=== PATIENT | female | born 1995 | race African-American/Black ===

== ENCOUNTER 2016-12-10 21:43 | Emergency (ER) | payer MEDICAID ==
[~2016-12-10] VITALS: Ht 170.2 cm; Wt 99.0 kg
[~2016-12-10 21:43] MED LIST: ALBU1AER INH; ALBUAER3 INH; LATU40TA PO; LITH150C7 PO; PRED20 PO
[2016-12-10 21:45] VITALS: BP 160/101; PULSE 110; RESP 20; TEMP 99.1; O2SAT 100
[2016-12-10 22:47] VITALS: BP 142/79; PULSE 87; RESP 20; O2SAT 100
[2016-12-10] MEDS ORDERED: SODIUM CHLORIDE 0.9% FLUSH 10 ML FLUSH IVF PRN (23:30)
[2016-12-10 23:32] VITALS: BP_SYST 148; BP_SYST 149; BP_SYST 152; BP_DIAS 76; BP_DIAS 81; RESP 20; RESP 25
--- NOTE | 2016-12-10 23:56 | RADRPT ---
EXAM DATE/TIME: 12/10/2016 23:24 [facility] COMPARISON: No previous studies available for comparison. INDICATIONS : Syncopal episode. MEDICAL HISTORY : Asthma SURGICAL HISTORY : None. ENCOUNTER: Initial ACUITY: 1 day PAIN SCORE: 0/10 LOCATION: Bilateral chest FINDINGS: A single view of the chest demonstrates the lungs to be symmetrically aerated without evidence of mas s, infiltrate or effusion. The cardiomediastinal contours are unremarkable. Osseous structures are intact. CONCLUSION: No evidence of acute cardiopulmonary disease. Tyler Hilton MD on December 10, 2016 at 23:54 Board Certified Radiologist. This report was verified electronically.
[2016-12-11 00:36] LABS: AUTOMATED NEUTROPHIL # 3.5 TH/MM3 (1.8-7.7); BASOPHIL % 0.5 % (0.0-2.0); EOSINOPHIL % 0.4 % (0.0-4.0); HEMATOCRIT 42.7 % (35.0-46.0); HEMO FLAGS DIFF FINAL; LYMPH % 44.8 % (9.0-44.0); LYMPHOCYTE # 3.3 TH/MM3 (1.0-4.8); MEAN CELL VOLUME 88.7 FL (80.0-100.0); MEAN CORPUSCULAR HEMOGLOBIN 28.7 PG (27.0-34.0); MEAN CORPUSCULAR HGB CONC 32.4 % (32.0-36.0); MONO % 6.4 % (0.0-8.0); NEUT % 47.9 % (16.0-70.0); PLATELET COUNT 239 TH/MM3 (150-450); RED BLOOD COUNT 4.81 MIL/MM3 (4.00-5.30); RED CELL DISTRIBUTION WIDTH 13.8 % (11.6-17.2); WHITE BLOOD COUNT 7.4 TH/MM3 (4.0-11.0)
--- NOTE | 2016-12-11 00:49 | RADRPT ---
EXAM DATE/TIME: 12/11/2016 00:33 [facility] COMPARISON: No previous studies available for comparison. INDICATIONS : Cephalgia. RADIATION DOSE: 56.77 CTDIvol (mGy) MEDICAL HISTORY : None SURGICAL HISTORY : None. ENCOUNTER: Initial ACUITY: 1 day PAIN SCALE: 8/10 LOCATION: cranial TECHNIQUE: Multiple contiguous axial images were obtained of the head. Using automated exposure control and adj ustment of the mA and/or kV according to patient size, radiation dose was kept as low as reasonably a chievable to obtain optimal diagnostic quality images. FINDINGS: CEREBRUM: The ventricles are normal for age. No evidence of midline shift, mass lesion, hemorrhage or acute in farction. No extra-axial fluid collections are seen. POSTERIOR FOSSA: The cerebellum and brainstem are intact. The 4th ventricle is midline. The cerebellopontine angle i s unremarkable. EXTRACRANIAL: The visualized portion of the orbits is intact. SKULL: The calvaria is intact. No evidence of skull fracture. CONCLUSION: Negative noncontrast head CT. Tyler Hilton MD on December 11, 2016 at 0:47 Board Certified Radiologist. This report was verified electronically.
--- NOTE | 2016-12-11 00:49 | PD ---
HPI Chief Complaint: Syncope/Near-Syncope Time Seen by Provider: 23:20 Travel History International Travel<30 days: No Contact w/Intl Traveler<30days: No Traveled to known affect area: No History of Present Illness HPI 21-year-old female presents to the emergency department for evaluation of syncopal episode. Patient who provides her own history had just finished using her inhaler for her asthma and going to the bathroom to urinate when she was called by her mother to come downstairs and by the time she got out of the bottom stairs she had a fainting spell. Patient states that this event was witnessed and family member who is at the scene reported that she did not sustain any injury did not hit her head and did not have any seizure activity. Patient did not have any bladder or bowel incontinence and did not write her tongue. Patient is out for less than a minute or 2 reportedly. Patient denies headache or confusion. Patient had no preceding or post headache visual disturbance palpitations chest pain nausea vomiting diarrhea abdominal pain shortness of breath sweats or focal upper or lower extremity numbness tingling or weakness. Patient denies as she is on Depo-Provera shots and denies tobacco use. No personal history family history of clotting disorder. No pleuritic pain. Patient denies any injury. Patient's had no recent febrile illness or respiratory illness. Patient denies any dysuria frequency or urgency. Patient reports after deciding to be seen for her passing out spell started noticing some headache. Headache is not sudden onset thunderclap or worst ever. Patient has taken no medications prior to arrival to the emergency department. Patient here rates her pain 8/10 in intensity. PFSH Past Medical History Narrative Medical ADHD bipolar disorder schizophrenia asthma insomnia; no surgery; no tobacco use no alcohol use no substance use; nursing notes reviewed ADHD: Yes Blood Disorders: No Bipolar Disorder: Yes Cancer: No Diabetes: No Diminished Hearing: No Neurologic: Yes (SCHITZOPHRENIC, BIPOLAR, INSOMNIA) Psychiatric: No Immunizations Current: Yes Schizophrenia: Yes Seizures: No Thyroid Disease: No Ulcer: No Past Surgical History Other Surgery: No Social History Alcohol Use: No Tobacco Use: No Substance Use: No Allergies-Medications (Allergen,Severity, Reaction): Coded Allergies: Amoxicillin (Verified Allergy, Unknown, 12/10/16) Rosas (Verified Allergy, Unknown, 12/10/16) Reported Meds & Prescriptions Reported Meds & Active Scripts Active Proair Hfa 8.5 GM Inh (Albuterol Sulfate) 90 Mcg/Act Aer 2 Puff INH Q4-6H PRN 108 mcg/actuation Proair Hfa (Albuterol Sulfate) 8.5 Gm Aero 2 Puff INH Q4 * SHAKE WELL BEFORE USE * Deltasone (Prednisone) 20 Mg Tab 20 Mg PO BID Reported [place] Carbonate 150 Mg Cap 300 Mg PO BID Latuda (Lurasidone HCl) 40 Mg Tab 40 Mg PO DAILY Review of Systems Except as stated in HPI: all other systems reviewed are Neg General / Constitutional: No: Fever, Chills HENT: No: Congestion Cardiovascular: No: Chest Pain or Discomfort Respiratory: No: Shortness of Breath Gastrointestinal: No: Nausea, Vomiting, Abdominal Pain Genitourinary: No: Urgency, Frequency, Dysuria Musculoskeletal: No: Myalgias, Arthralgias Skin: No Rash Neurologic: No: Weakness, Dizziness Psychiatric: No: Anxiety Endocrine: No: Heat Intolerance Hematologic/Lymphatic: No: Easy Bruising Physical Exam Narrative GENERAL: Well-developed well-nourished female in no acute distress no respiratory distress SKIN: Warm and dry. HEAD: Atraumatic. Normocephalic. No scalp tenderness no soft tissue swelling EYES: Pupils equal and round. No scleral icterus. No injection or drainage. Extraocular muscles intact. ENT: No nasal bleeding or discharge. Mucous membranes pink and moist. Airway is patent. No tongue trauma. NECK: Trachea midline. No JVD. Nontender to direct palpation along the cervical spine no bony step-off. Supple no meningismus. CARDIOVASCULAR: Regular rate and rhythm. RESPIRATORY: No accessory muscle use. Clear to auscultation. Breath sounds equal bilaterally. GASTROINTESTINAL: Abdomen soft, non-tender, nondistended. Hepatic and splenic margins not palpable. MUSCULOSKELETAL: Extremities without clubbing, cyanosis, or edema. No obvious deformities. NEUROLOGICAL: Awake and alert. No obvious cranial nerve deficits. Motor grossly within normal limits. Five out of 5 muscle strength in the arms and legs. Normal speech. PSYCHIATRIC: Appropriate mood and affect; insight and judgment normal. Data Data Last Documented VS Vital Signs Date Time Temp Pulse Resp B/P Pulse Ox O2 Delivery O2 Flow Rate FiO2 12/10/16 23:32 82 20 149/81 106 25 152/81 89 20 148/76 12/10/16 22:47 100 Room Air 12/10/16 21:45 99.1 Orders Electrocardiogram (12/10/16 23:20) Basic Metabolic Panel (Bmp) (12/10/16 23:20) Ed Urine Pregnancytest Poc (12/10/16 23:20) Complete Blood Count With Diff (12/10/16 23:20) Magnesium (Mg) (12/10/16 23:20) Troponin I (12/10/16 23:20) Urinalysis - C+S If Indicated (12/10/16 23:20) Chest, Single Ap (12/10/16 23:20) Ct Brain W/O Iv Contrast(Rout) (12/10/16 23:20) Blood Glucose (12/10/16 23:20) Ecg Monitoring (12/10/16 23:20) Iv Access Insert/Monitor (12/10/16 23:20) Oximetry (12/10/16 23:20) Sodium Chloride 0.9% Flush (Ns Flush) (12/10/16 23:30) Orthostatic Vital Signs (12/10/16 23:20) Labs Laboratory Tests Test 12/11/16 12/11/16 00:17 00:18 White Blood Count 7.4 TH/MM3 Red Blood Count 4.81 MIL/MM3 Hemoglobin 13.8 GM/DL Hematocrit 42.7 % Mean Corpuscular Volume 88.7 FL Mean Corpuscular Hemoglobin 28.7 PG Mean Corpuscular Hemoglobin 32.4 % Concent Red Cell Distribution Width 13.8 % Platelet Count 239 TH/MM3 Mean Platelet Volume 8.2 FL Neutrophils (%) (Auto) 47.9 % Lymphocytes (%) (Auto) 44.8 % Monocytes (%) (Auto) 6.4 % Eosinophils (%) (Auto) 0.4 % Basophils (%) (Auto) 0.5 % Neutrophils # (Auto) 3.5 TH/MM3 Lymphocytes # (Auto) 3.3 TH/MM3 Monocytes # (Auto) 0.5 TH/MM3 Eosinophils # (Auto) 0.0 TH/MM3 Basophils # (Auto) 0.0 TH/MM3 CBC Comment DIFF FINAL Differential Comment Sodium Level 138 MEQ/L Potassium Level 3.6 MEQ/L Chloride Level 106 MEQ/L Carbon Dioxide Level 25.0 MEQ/L Anion Gap 7 MEQ/L Blood Urea Nitrogen 11 MG/DL Creatinine 0.60 MG/DL Estimat Glomerular Filtration 153 ML/MIN Rate Random Glucose 88 MG/DL Calcium Level 8.8 MG/DL Magnesium Level 2.2 MG/DL Troponin I LESS THAN 0.02 NG/ML Urine Color YELLOW Urine Turbidity HAZY Urine pH 5.5 Urine Specific [place] 1.017 Urine Protein NEG mg/dL Urine Glucose (UA) NEG mg/dL Urine Ketones NEG mg/dL Urine Occult Blood NEG Urine Nitrite NEG Urine Bilirubin NEG Urine Urobilinogen LESS THAN 2.0 MG/DL Urine Leukocyte Esterase SMALL Urine WBC 2 /hpf Urine Squamous Epithelial 10 /hpf Cells Urine Bacteria RARE /hpf Microscopic Urinalysis Comment CULT NOT INDICATED MDM Medical Decision Making Medical Screen Exam Complete: Yes Emergency Medical Condition: Yes Medical Record Reviewed: Yes Interpretation(s) CBC & BMP Diagram 12/11/16 00:17 Vital Signs Date Time Temp Pulse Resp B/P Pulse Ox O2 Delivery O2 Flow Rate FiO2 12/10/16 23:32 82 20 149/81 106 25 152/81 89 20 148/76 12/10/16 22:47 87 20 142/79 100 Room Air 12/10/16 21:45 99.1 110 20 160/[address] brain w/o: CONCLUSION: Negative noncontrast head CT. Tyler Hilton MD on December 11, 2016 at 0:47 Board Certified Radiologist. This report was verified electronically. CXR: CONCLUSION: No evidence of acute cardiopulmonary disease. Tyler Hilton MD on December 10, 2016 at 23:54 Board Certified Radiologist. This report was verified electronically. Differential Diagnosis Syncope, vasovagal syncope, post micturition syncope, arrhythmia, electronic disturbance, minor closed head injury, ICH, seizure, adverse medication reaction , , PE Narrative Course Patient placed on b2b outside sales representative IV access obtained specimens collected and sent for resulting; EKG performed sinus rhythm rate [address] elevation or injury pattern change noted doesn't collected and sent for resulting It's 1:29 AM patient is been resting comfortably without recurrent episodes of syncope no rhythm disturbance on b2b outside sales representative orthostatic measurements without significant variance and patient asymptomatic; CBC with automated differential values in normal range except mild lymphocytosis of 44.8%, basic metabolic panel within normal limits, troponin I less than 0.02, not elevated, [id number] hCG negative, urinalysis culture is not indicated otherwise unremarkable; chest x-ray and CT brain noncontrast per reading radiologist no acute abnormality identified. At this point time based on patient's history and presentation she is stable for outpatient management and appears to have had a post micturition/vasovagal syncopal episode. Patient is encouraged to follow-up with her primary care provider and to return to the emergency department as needed. Patient should this information and is stable for outpatient management. Diagnosis Primary Impression: Vasovagal syncope Referrals: Primary Care Physician 2 days Patient Instructions: General Instructions Additional Instructions: Continue current medications as presently prescribed as needed Follow-up with your primary care provider call office on Monday for follow-up appointment Return to the emergency department for any concerns or change in condition Take acetaminophen/Tylenol every 4 hours as needed for fever 100.4F or greater May take ibuprofen/Advil/Motrin every 6-8 hours as needed for fever 100.4F or greater or for pain associated with inflammation Increase fluid hydration Disposition: 01 DISCHARGE HOME Condition: Stable Lynette Dorman MD Dec 11, 2016 00:49
[2016-12-11 00:53] LABS: BACTERIA, URINE RARE /hpf; BLOOD, URINE NEG (NEG); COMMENT (UR) CULT NOT INDICATED; CULTURE IF INDICATED CULT NOT INDICATED; GLUCOSE,URINE NEG (NEG); KETONE, URINE NEG (NEG); NITRITE,URINE NEG (NEG); PH, URINE 5.5 (5.0-8.5); SQUAMOUS EPITHELIAL CELL URINE 10 /hpf (0-5); URINE COLOR YELLOW (YELLW/STRAW)
[2016-12-11 00:59] LABS: ANION GAP 7 MEQ/L (5-15); BLOOD UREA NITROGEN 11 MG/DL (7-18); CHLORIDE 106 MEQ/L (98-107); GLOMERULAR FILTRATION RATE 153 ML/MIN (>89); MAGNESIUM 2.2 MG/DL (1.5-2.5); POTASSIUM 3.6 MEQ/L (3.5-5.1); SODIUM (NA) 138 MEQ/L (136-145)
[2016-12-11 01:33] VITALS: BP 148/89
--- NOTE | 2016-12-11 22:23 | EKG ---
Date Performed: 12/10/2016 Time Performed: 23:27:11 PTAGE: 21 years EKG: Sinus rhythm MODERATE VOLTAGE CRITERIA FOR LVH, CONSIDER NORMAL VARIANT NONSPECIFIC T-WAVE ABNORMALITY BORDERLINE ECG PREVIOUS TRACING : 08/30/2002 18.25 Compared to prior tracing no significant change DOCTOR: Katherine Clement Interpretating Date/Time 12/11/2016 22:23:03
== END 2016-12-11 01:49 | disposition home or self-care (01) ==
LOC: NEPC 21:43
DX: R55 Syncope and collapse (principal); R51 Headache; R94.31 Abnormal electrocardiogram [ECG] [EKG]; Z86.59 Personal history of other mental and behavioral disorders; Z87.09 Personal history of other diseases of the respiratory system; Z86.69 Personal history of other diseases of the nervous system and sense organs
CPT/HCPCS: 70450; 71010; 80048; 81001; 83735; 84484; 84703; 85025; 93005

== ENCOUNTER 2017-04-07 15:17 | Emergency (ER) | payer MEDICAID ==
[~2017-04-07] VITALS: Ht 170.2 cm; Wt 120.0 kg
[2017-04-07 17:40] VITALS: BP 124/62; PULSE 71; RESP 15; TEMP 98.9; O2SAT 99
== END 2017-04-07 18:44 | disposition left against medical advice (07) ==
LOC: NETRI 15:17
DX: Z53.21 Procedure and treatment not carried out due to patient leaving prior to being seen by health care provider (principal)
CPT/HCPCS: 99281